=== PATIENT | male | born 1980 | race Caucasian/White ===

== ENCOUNTER 2025-09-13 08:31 | Emergency (ER) | payer SELFPAY | END 2025-09-13 09:11 | disposition home or self-care (01) | LOC: CSHERS 08:31 | DX: H60.91 Unspecified otitis externa, right ear (principal); J01.00 Acute maxillary sinusitis, unspecified; R59.1 Generalized enlarged lymph nodes; F17.210 Nicotine dependence, cigarettes, uncomplicated | CPT/HCPCS: 99282 ==